=== PATIENT | female | born 1985 | race Caucasian/White ===

== ENCOUNTER 2018-01-29 08:32 | Inpatient (IN) | payer OTHER ==
[~2018-01-29] VITALS: Ht 170.2 cm; Wt 84.8 kg
[~2018-01-29 08:32] MED LIST: OXYCODONE HCL5 M1 PO
[2018-01-29 08:54] VITALS: BP 110/75
[2018-01-29 09:39] LABS: ABSOLUTE BASOPHIL COUNT 0 /CUMM (0.0-0.2); ABSOLUTE EOSINOPHIL COUNT 0 /CUMM (0.0-0.7); ABSOLUTE GRANULOCYTE CT 11.6 /CUMM (1.4-6.5); ABSOLUTE LYMPH COUNT 0.8 /CUMM (1.2-3.4); ABSOLUTE MONOCYTE COUNT 0.5 /CUMM (0.10-0.60); BASOPHIL % 0 % (0.0-2.0); EOSINOPHIL % 0.2 % (0-5); GRANULOCYTE % 89.6 % (42.2-75.2); HEMATOCRIT 38.6 % (37-47); MEAN CORPUSCULAR HGB 30.2 PG (27.0-31.0); MEAN CORPUSCULAR HGB CONC 33.6 G/DL (33.0-37.0); MEAN CORPUSCULAR VOLUME 90.1 FL (81.0-99.0); MEAN PLATELET VOLUME 8.7 FL (7.4-10.4); PLATELET COUNT 194 /CUMM (130-400); RBC DISTRIBUTION WIDTH 17.2 % (11.5-14.5); RED BLOOD CELL CT 4.29 /CUMM (4.20-5.40); WHITE BLOOD CELL COUNT 12.9 /CUMM (4.8-10.8)
--- NOTE | 2018-01-29 10:35 | History & Physical ---
General Information and HPI MD Statement: I have seen and personally examined FEI GILMAN and documented this H&P. The patient is a 32 year old female at [40] weeks and 2[] days gestation who presented with a chief complaint of [frequent strong painful UCs for a few hours. ]. 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 She was scheduled for step-howard IOL 3 days later for [id number]. That night she developed intermittent UCs that became stronger and more regular overnight, and this morning she called the office reporting very strong and reular UCs. Her water had not broken, there was no VB, and the baby was moving and kicking. She was directed to go to [facility]. 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 Home Who Do You Live With? spouse, step-child Primary Language: Lao Smoking Status: Current Some Day Smoker (very infrequent) ETOH Use: denies use (not during ) Illicit Drug Use: denies illicit drug use Living Will? unknown Power of Bottom Finisher/HCP? unknown Employment History Employment Employed Review of Systems Review of Systems Constitutional: Reports: no symptoms. EENTM: Reports: no symptoms. Cardiovascular: Reports: peripheral edema. Respiratory: Reports: no symptoms. GI: Reports: constipation. Genitourinary: Reports: frequency, nocturia. Musculoskeletal: Reports: back pain. Skin: Reports: no symptoms. Neurological/Psychological: Reports: no symptoms. Hematologic/Endocrine: Reports: no symptoms. Immunologic/Allergic: Reports: no symptoms. All Other Systems: Reviewed and Negative Date of LMP: 04/19/17 Post Menopausal: No Mammogram Testing Status: Test never done Date of Last Pap Smear: 06/15/17 (normal) Colonoscopy Testing Status: Test never done Exam & Diagnostic Data Obstetric Exam Wgt Gained During : 47 lbs Pelvimetry: adequate Dilation (cm): 6 Effacement (%): 100 Station: -1 Membranes: intact Fluid: unknown Fundal Height (cm): 38 Multiple Gestation? No Contractions: q3-4 #1 - FHR Baseline: 140 Category: 1 Estimated Weight: 8.5 lbs Presentation: VTX Patient for Induction? No Vega Score Vega Score Response Value Cervix Position: anterior 2 Cervix Consistency: soft 2 Cervix Effacement: >80% 3 Cervix Dilation: >5 cm 3 Cervix Station: -1 2 Total 12 Physical Exam General Appearance Alert, Oriented X3, Cooperative, Mild Distress Skin No Rashes HEENT Mucous Membr. moist/pink Neck Supple Lymphatic Cervical nl Cardiovascular Regular Rate Lungs Normal Air Movement Abdomen Soft, No Tenderness Neurological Normal Speech, Normal Tone, Sensation Intact, Reflexes 2+ Extremities bilat. pedal edema 2+ Vascular Normal Pulses Breasts Breast appear nl Reproductive (FEMALE) Normal female genitalia Pelvic (FEMALE) Appearance Normal Rectal No Hemorrhoids Labs Blood Type & Rh: A neg Antibody Screen: neg Hct/Hgb & Platelets #1: 13.3/42.1%, 218 k Hct/Hgb & Platelets #2: 10.3/34.2%, 210K Rubella: immune VDRL #1: NR VDRL #2: NR HbsAg: NR HIV #1: NR HIV #2 NR 1 Hr P Group B Strep: NEG Initial Ultrasound: 06/15/2017 - 8w1d Anatomy Ultrasound: 09-06-2017 - 19w6d, normal anatomy Ultrasound for EFW: 01/16/18 - 38w6d - EFW 3836g, 84% Genetic Testinst TMS and cell-free DNA tests normal Last 24 Hrs of Labs/Colby: Laboratory Tests 01/30/18 0600: CBC w Diff NO MAN DIFF REQ, RBC 3.43 L, MCV 90.0, MCH 30.5, MCHC 33.9, RDW 17.4 H, MPV 8.7, Gran % 77.7 H, Lymphocytes % 14.6 L, Monocytes % 7.2, Eosinophils % 0.3, Basophils % 0.2, Absolute Granulocytes 7.8 H, Absolute Lymphocytes 1.5, Absolute Monocytes 0.7 H, Absolute Eosinophils 0, Absolute Basophils 0, Kleihauer Cells Pending Microbiology 01/29 1100 URINE ROUT: Urine Culture - RES ITS Data ITS Data Unobtainable at this time Assessment/Plan Assessment/Plan: active labor at 40 weeks As Ranked By This Provider Problem List: 1. 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 Active labor at term Assessment/Plan presents to L&D 6-7cm dilated with strong regular UCs 3. 40 weeks gestation of Assessment/Plan 40w2d, dating reliable 4. LGA (large for gestational age) Assessment/Plan EFW 8-9 lbs 5. Rh negative status during Assessment/Plan received rhogam at 28w Core Measures Venous Thromboembolism VTE Risk Factors / No Mechanical VTE Prophylaxis d/t Early Ambulation No VTE Pharm Prophylaxis d/t LowRisk-No Interven Req'd Attending MD Review Statement Attending Statement Attending MD Statement: examined this patient, discussed with family, reviewed EMR data (avail), discussed w/nursing Attending Assessment/Plan: Spontaneous active labor in a primipara. As she requests an epidurl will be placed as soon as possible. Anticipate .
--- NOTE | 2018-01-29 21:01 | Labor & Delivery Summary ---
Delivery Summary Vaginal Delivery: Vaginal: spontaneous Episiotomy/Lacerations: Episiotomy/Lacerations: bilateral inner labial abrasions Repair: 3.0 Vicryl Anesthesia: local Placenta: Placenta: spontanteous, normal, 3 vessel Anesthesia: epidural for labor/delivery and local needed for repair Baby's Weight: [id number] Apgars - 1 Min: 9 Apgars - 5 Min: 9 Additional Comments: Primipara was delivered at 40w2d, spontaneously, of a single viable female infant, 9,9, [id number] from the TIGIST position over an intact perineum with resultant bilateral inner labial abrasions. Clear AF, 3VC, large placenta delivered spontaneously and intact. Repair of inner labia with 3.0 Vicryl. Perineum, vaginal nesbitt, cervix, rectal sphincter and mucosa intact. Clots evacuated from vault and SHAGGY, fundus firm, good hemostasis. Sponge and needle counts correct. EBL 20cc.
[2018-01-30 06:42] LABS: ABSOLUTE BASOPHIL COUNT 0 /CUMM (0.0-0.2); ABSOLUTE EOSINOPHIL COUNT 0 /CUMM (0.0-0.7); ABSOLUTE GRANULOCYTE CT 7.8 /CUMM (1.4-6.5); ABSOLUTE LYMPH COUNT 1.5 /CUMM (1.2-3.4); ABSOLUTE MONOCYTE COUNT 0.7 /CUMM (0.10-0.60); BASOPHIL % 0.2 % (0.0-2.0); EOSINOPHIL % 0.3 % (0-5); GRANULOCYTE % 77.7 % (42.2-75.2); MEAN CORPUSCULAR HGB 30.5 PG (27.0-31.0); MEAN CORPUSCULAR HGB CONC 33.9 G/DL (33.0-37.0); MEAN PLATELET VOLUME 8.7 FL (7.4-10.4); PLATELET COUNT 156 /CUMM (130-400); RBC DISTRIBUTION WIDTH 17.4 % (11.5-14.5); RED BLOOD CELL CT 3.43 /CUMM (4.20-5.40)
[2018-01-30 06:47] LABS: HEMATOCRIT 30.8 % (37-47)
--- NOTE | 2018-01-30 10:30 | PN- Post Delivery/GYN ---
Subjective Subjective: feeling well Review of Systems Constitutional: Denies: chills, fever. EENTM: Denies: blurred vision, double vision, visual changes. Cardiovascular: Denies: chest pain, edema. Gastrointestinal: Denies: abdominal pain, nausea, vomiting. Neurological/Psychological: Denies: anxiety, depressed. Objective Last 24 Hrs of Vital Signs/I&O vss Physical Exam General Appearance Alert, Oriented X3, Cooperative, No Acute Distress Cardiovascular Regular Rate Lungs Clear to Auscultation Abdomen Normal Bowel Sounds, Soft, No Tenderness, fundus firm Extremities No Edema Pelvic (FEMALE) lochia serosanganous Current Medications: Current Medications Sig/Morris Start time Last Medication Dose Route Stop Time Status Admin Acetaminophen 650 MG Q4P PRN 01/29 2100 AC PO Bupivacaine HCl 0 .STK-MED ONE 01/29 1620 DC .ROUTE Chloroprocaine HCl 0 .STK-MED ONE 01/29 1525 DC .ROUTE Fentanyl Citrate 0 .STK-MED ONE 01/29 1030 DC .ROUTE Ibuprofen 800 MG Q6P PRN 01/29 2100 AC 01/30 PO 0821 Lactated Ringer's 1,000 ML Q8H 01/29 0900 AC 01/29 IV 1056 Magnesium Hydroxide 30 ML DAILY PRN 01/29 2100 AC PO Oxycodone/ 1 TAB Q3P PRN 01/29 2100 AC Acetaminophen PO Oxytocin 20 UNITS Q5H 01/29 2100 DC Lactated Ringer's 1,000 ML IV 01/30 0159 Last 24 Hrs of Labs/Colby: Laboratory Tests 01/30/18 0600: CBC w Diff NO MAN DIFF REQ, RBC 3.43 L, MCV 90.0, MCH 30.5, MCHC 33.9, RDW 17.4 H, MPV 8.7, Gran % 77.7 H, Lymphocytes % 14.6 L, Monocytes % 7.2, Eosinophils % 0.3, Basophils % 0.2, Absolute Granulocytes 7.8 H, Absolute Lymphocytes 1.5, Absolute Monocytes 0.7 H, Absolute Eosinophils 0, Absolute Basophils 0, Kleihauer Cells Pending Microbiology 01/29 1100 URINE ROUT: Urine Culture - RES Assessment/Plan Assessment/Plan PPD #1 vss afebrile/ plan d/c home tomorrow Problem List: 1. Attending MD Review Statement Attending Statement Attending MD Statement: examined this patient, discussed with family
[2018-01-31] MEDS ORDERED: IBUPROFEN800 M1 PO (03:44)
--- NOTE | 2018-01-31 05:21 | PN- OBGYN ---
Surgical Brief Attending Note Brief Attending Note: PPD2 Patient felt well, was discharged from the unit in excellent condition, prior to my seeing her, while I was doing a C/S on another patient. I had signed her release papers so she wouldn't have to wait, and per RN, she was not in pain, fundus was firm and lochia was scant, was going well, she was tolerating all POs, was ambulating and voiding without difficulty, and had moved her bowels. She knew how to care for the labial sutures, was instructed on nipple moisturization, and was given pain, bleeding, and fever precautions, and pelvic restrictions. She will F/U at the [facility] in 2-3 days and at [facility] in 6 weeks.
== END 2018-01-31 09:50 | DRG 775 ==
LOC: CBCO 08:32 → GNO 08:44
PROVIDERS: Obstetrics & Gynecology
PROC: 0UQMXZZ Repair Vulva, External Approach (ICD-10-PCS; principal; 2018-01-29)
PROC: 10E0XZZ Delivery of Products of Conception, External Approach (ICD-10-PCS; principal; 2018-01-29)
PROC: 3E0234Z Introduction of Serum, Toxoid and Vaccine into Muscle, Percutaneous Approach (ICD-10-PCS; 2018-01-30)
DX: O70.0 First degree perineal laceration during delivery (principal); Z3A.40 40 weeks gestation of pregnancy; Z37.0 Single live birth; Z88.1 Allergy status to other antibiotic agents; O99.334 Smoking (tobacco) complicating childbirth; Z67.11 Type A blood, Rh negative
CPT/HCPCS: GNOS; 36415; 81001; 87086; J2790; J7120